=== PATIENT | male | born 1965 | race African-American/Black ===

== ENCOUNTER 2016-08-31 14:34 | Emergency (ER) | payer MEDICARE, MEDICAID ==
[~2016-08-31] VITALS: Ht 182.9 cm; Wt 102.5 kg
[~2016-08-31 14:34] MED LIST: GABAPENTIN300 MG PO; HYDROCHLOROTH12.5 MG PO; HYDROCHLOROTHIA25 MG PO; LINZESS290 MCG PO; MIRALAX17 GM PO; MOBIC15 MG PO; MORPHINE SULFAT30 M1 PO; MS CONTIN60 MG PO; NIZORAL200 MG PO; OXYCODONE HCL15 MG PO; PREDNISONE5 MG PO; SENOKOT-S TABL1 EACH PO; SENOKOT8.6 MG PO; WELLBUTRIN SR150 MG PO; XTANDI40 MG PO; ZYTIGA250 MG PO
== END 2016-08-31 17:00 | disposition short-term general hospital (02) ==
LOC: ER 14:34
DX: R50.9 Fever, unspecified (principal); C80.1 Malignant (primary) neoplasm, unspecified; C79.82 Secondary malignant neoplasm of genital organs; Z88.0 Allergy status to penicillin

== ENCOUNTER → 2016-09-01 | Outpatient (CLI) | payer MEDICARE, MEDICAID | END | disposition short-term general hospital (02) | LOC: CLONCO 10:22 | DX: C61 Malignant neoplasm of prostate (principal); C79.51 Secondary malignant neoplasm of bone; R00.0 Tachycardia, unspecified ==

== ENCOUNTER → 2016-09-29 | Outpatient (CLI) | payer MEDICARE, MEDICAID | END | disposition short-term general hospital (02) | LOC: CLONCO 09:01 | DX: C79.51 Secondary malignant neoplasm of bone (principal); C77.9 Secondary and unspecified malignant neoplasm of lymph node, unspecified; C61 Malignant neoplasm of prostate; R91.8 Other nonspecific abnormal finding of lung field ==

== ENCOUNTER → 2016-10-27 | Outpatient (CLI) | payer MEDICARE, MEDICAID | END | disposition short-term general hospital (02) | LOC: CLONCO 11:10 | DX: C61 Malignant neoplasm of prostate (principal) ==